=== PATIENT | male | born 1940 | race Caucasian/White ===

== ENCOUNTER 2021-09-17 19:44 | Emergency (ER) | payer OTHER ==
[~2021-09-17] VITALS: Ht 165.1 cm; Wt 57.6 kg
[2021-09-17 20:01] VITALS: BP_SYST 110
--- NOTE | 2021-09-17 20:15 | NUR ---
Schwartz speaking to patient and daughter at this time.
--- NOTE | 2021-09-17 20:30 | NUR ---
Patient taken to xray.
[2021-09-17] MEDS ORDERED: ACET-2634 PO (20:49)
[2021-09-17] MEDS ORDERED: POLY17PO4 PO (20:50)
--- NOTE | 2021-09-17 21:22 | NUR ---
Patient given written and verbal discharge instructions and verbalizes understanding. ER MD discussed with patient the results and treatment provided. Patient in stable condition. ID arm band removed. IV catheter removed intact and dressing applied, no active bleeding. Rx of N/A given. Patient educated on pain management and to follow up with PMD. Pain Scale . Opportunity for questions provided and answered. Medication side effect fact sheet provided.
== END 2021-09-17 21:00 | disposition home or self-care (01) ==
LOC: SED 19:44
DX: K59.00 Constipation, unspecified (principal); R10.9 Unspecified abdominal pain; Z79.899 Other long term (current) drug therapy
CPT/HCPCS: 74018; 99283

== ENCOUNTER 2021-09-22 00:49 | Emergency (ER) | payer OTHER ==
[~2021-09-22 00:49] MED LIST: ACET-2634 PO; POLY17PO4 PO
[2021-09-22 01:18] VITALS: BP_SYST 123
[2021-09-22] MEDS ORDERED: ASPIRIN 81 MG TAB.CHEW PO ONE (01:30)
[2021-09-22] MEDS ORDERED: LORazepam 1 MG TABLET PO ONE (01:30)
--- NOTE | 2021-09-22 01:38 | NUR ---
SOB SINCE THIS AFTERNOON. NO C/O COUGH, N/V/D OR FEVER. NO HX CHF OR COPD. DAUGHTER AT BEDSIDE. "MORE ANXIETY" PER DAUGHTER SINCE SPOUSE IN MAY 2021
[2021-09-22 02:03] LABS: HEMOGLOBIN 13.1 g/dL (14.0-18.0); MONOCYTES # (AUTO) 0.5 K/uL (0.0-1.0)
[2021-09-22 02:06] LABS: ANION GAP 7 (5-15); CALCIUM 9.1 mg/dL (8.4-11.0); CHLORIDE 93 mmol/L (98-107); CREATININE 1.21 mg/dL (0.55-1.30); GLUCOSE 146 mg/dL (70-99); POTASSIUM 3.9 mmol/L (3.5-5.1); SODIUM SERUM 128 mmol/L (136-145); UREA NITROGEN, BLOOD 15 mg/dL (8-21)
[2021-09-22 02:10] LABS: PLATELET COUNT (AUTO) 235 K/uL (130-430)
[2021-09-22 02:15] LABS: ALANINE AMINOTRANSFERASE 8 U/L (12-78); ALBUMIN 3.7 g/dL (3.4-4.8); ASPARTATE AMINOTRANSFERASE 21 U/L (10-37); TOTAL BILIRUBIN 0.8 mg/dL (0.0-1.0)
[2021-09-22 02:16] LABS: BASOPHILS % (AUTO) 0.5 % (0.0-2.0); EOSINOPHILS % (AUTO) 0.5 % (0.0-4.0); HEMATOCRIT 37.6 % (36-54); LYMPHOCYTES # (AUTO) 1.4 K/uL (1.0-5.5); LYMPHOCYTES % (AUTO) 27.9 % (20.5-51.5); MEAN CORPUSCULAR HEMOGLOBIN 31 pg (27-31); MEAN CORPUSCULAR HGB CONC 35 % (32-36); MEAN CORPUSCULAR VOLUME 90 fL (79.0-98.0); MONOCYTES % (AUTO) 10.4 % (1.7-9.3); NEUTROPHILS # (AUTO) 3.1 K/uL (1.8-7.7); NEUTROPHILS % (AUTO) 60.7 % (40.0-70.0); RED BLOOD CELL COUNT(AUTO) 4.19 MIL/uL (4.2-6.2); RED CELL DISTRIBUTION WIDTH 13.4 % (9.0-15.0); WHITE BLOOD COUNT (AUTO) 5.2 K/uL (4.8-10.8)
--- NOTE | 2021-09-22 02:21 | NUR ---
PT SITTING BACK ON GUERNEY. APPEARS MORE RELAXED, LESS ANXIOUS. DAUGHTER AT BEDSIDE. VSS. CONTINUED MONITORING.
[2021-09-22] MEDS ORDERED: BENZ1TAB8 PO (02:57)
[2021-09-22] MEDS ORDERED: HAL2 PO (02:57)
[2021-09-22 03:24] VITALS: BP_SYST 140
--- NOTE | 2021-09-22 03:25 | NUR ---
Patient given written and verbal discharge instructions and verbalizes understanding. ER MD discussed with patient the results and treatment provided. Patient in stable condition. ID arm band removed. Patient educated on pain management and to follow up with PMD. Opportunity for questions provided and answered. Medication side effect fact sheet provided.
== END 2021-09-22 03:23 | disposition home or self-care (01) ==
LOC: SED 00:49
DX: F41.1 Generalized anxiety disorder (principal); Z79.899 Other long term (current) drug therapy
CPT/HCPCS: 36415; 71045; 80053; 83880; 84484; 85025; 93005; 99285

== ENCOUNTER 2021-10-09 20:30 | Emergency (ER) | payer OTHER ==
[~2021-10-09] VITALS: Ht 165.1 cm; Wt 53.1 kg
[~2021-10-09 20:30] MED LIST changes: +BENZ1TAB8 PO; +HAL2 PO
[2021-10-09 20:38] VITALS: BP_SYST 141
--- NOTE | 2021-10-09 20:42 | NUR ---
HAS A HISTORY OF PALPITATIONS X 2 WEEKS, PLACED ON PROPRANOLOL TWO WEEKS AGO BUT DID NOT TAKE MEDICATION TODAY. SEEN AT AND TOLD TO COME TO ER. NO CHEST PAIN OR SOB WITH PALPITATIONS.
--- NOTE | 2021-10-09 22:00 | NUR ---
Placed in room 01 . Placed on equipment monitor phototypesetting, blood pressure machine and pulse oximeter. To gown for exam. Side rails up. Report given to DEVYN ARANDA
--- NOTE | 2021-10-09 22:09 | NUR ---
BOOM Chacko at bedside examining patient.
[2021-10-09] MEDS ORDERED: LORazepam 1 MG TABLET PO ONE (22:30)
--- NOTE | 2021-10-09 22:52 | NUR ---
Pt resting in bed with daughter at bedside. VSS. Pt appropriate and following commands. Safety precautions in place and connected to monitor.
[2021-10-09 23:42] LABS: BASOPHILS % (AUTO) 0.8 % (0.0-2.0); HEMOGLOBIN 12.6 g/dL (14.0-18.0); LYMPHOCYTES # (AUTO) 1.2 K/uL (1.0-5.5); LYMPHOCYTES % (AUTO) 24.1 % (20.5-51.5); MEAN CORPUSCULAR HEMOGLOBIN 32 pg (27-31); MEAN CORPUSCULAR HGB CONC 35 % (32-36); MEAN CORPUSCULAR VOLUME 90 fL (79.0-98.0); MONOCYTES # (AUTO) 0.6 K/uL (0.0-1.0); MONOCYTES % (AUTO) 11.7 % (1.7-9.3); NEUTROPHILS # (AUTO) 3.1 K/uL (1.8-7.7); NEUTROPHILS % (AUTO) 62.4 % (40.0-70.0); PLATELET COUNT (AUTO) 216 K/uL (130-430); RED BLOOD CELL COUNT(AUTO) 3.99 MIL/uL (4.2-6.2); WHITE BLOOD COUNT (AUTO) 4.9 K/uL (4.8-10.8)
[2021-10-09 23:43] LABS: ANION GAP 7 (5-15); CALCIUM 9.1 mg/dL (8.4-11.0); CHLORIDE 98 mmol/L (98-107); GLUCOSE 130 mg/dL (70-99); POTASSIUM 3.9 mmol/L (3.5-5.1); SODIUM SERUM 135 mmol/L (136-145); UREA NITROGEN, BLOOD 13 mg/dL (8-21)
[2021-10-09 23:56] LABS: ALANINE AMINOTRANSFERASE 16 U/L (12-78); ALBUMIN 3.4 g/dL (3.4-4.8); ASPARTATE AMINOTRANSFERASE 15 U/L (10-37); THYROID STIMULATING HORMONE 1.14 uIu/mL (0.36-3.74); TOTAL BILIRUBIN 0.4 mg/dL (0.0-1.0)
[2021-10-10 00:42] VITALS: BP_SYST 141
--- NOTE | 2021-10-10 00:42 | NUR ---
Patient given written and verbal discharge instructions and verbalizes understanding. ER Dr. Peres discussed with patient the results and treatment provided. Patient in stable condition. ID arm band removed. Patient educated on pain management and to follow up with PMD. Pain Scale 0. Opportunity for questions provided and answered. Medication side effect fact sheet provided.
== END 2021-10-10 00:42 | disposition home or self-care (01) ==
LOC: SED 20:30
DX: F41.9 Anxiety disorder, unspecified (principal); R00.2 Palpitations; F13.239 Sedative, hypnotic or anxiolytic dependence with withdrawal, unspecified; Z91.14 Patient's other noncompliance with medication regimen
CPT/HCPCS: 36415; 71045; 80053; 83880; 84443; 84484; 85025; 93005; 99285